=== PATIENT | male | born 1985 | race Caucasian/White ===

== ENCOUNTER 2017-03-22 18:34 | Emergency (ER) | payer SELFPAY ==
--- NOTE | 2017-03-22 18:50 | PDOC ---
History of Present Illness - History of Present Illness Initial Comments: 03/22/17 19:26 Patient is a 31 year old male with no significant medical hx who is presenting to the ED with multiple bee stings that occurred twenty minutes ago. 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 He reports 10-12 bee stings localized to his head, ears, and right foot. The patient also complains of itchy rash all over his body. Denies throat swelling, dyspnea, wheezing, nausea, vomiting, or cough. <Tamia Concepcion - Last Filed: 03/22/17 19:23> <López Mendiola - Last Filed: 03/22/17 22:50> - General Chief Complaint: Bite Stated Complaint: BEE ATTACK, ALLERGIC REACTION Time Seen by Provider: 03/22/17 18:49 Past History <Tamia Concepcion - Last Filed: 03/22/17 19:23> - Past Medical History Other medical history: NONE - Psycho/Social/Smoking Cessation Hx Anxiety: No Suicidal Ideation: No Smoking History: Never smoked Hx Alcohol Use: No Drug/Substance Use Hx: No Substance Use Type: None <López Mendiola - Last Filed: 03/22/17 22:50> - Past Medical History Allergies/Adverse Reactions: Allergies Allergy/AdvReac Type Severity Reaction Status Date / Time No Known Allergies Allergy Verified 03/22/17 18:39 Home Medications: Ambulatory Orders Diphenhydramine [Benadryl Capsule -] 50 mg PO QID #20 capsule 03/22/17 Epinephrine [Epipen 2-Mark] 0.3 mg IJ ASDIR #1 kit 03/22/17 Famotidine [Pepcid] 20 mg PO BID #20 tablet 03/22/17 Prednisone [Deltasone -] 60 mg PO DAILY #15 tablet 03/22/17 Review of Systems - Review of Systems Comments:: 03/22/17 19:27 CONSTITUTIONAL: No fever, no chills, no fatigue EYES: No visual changes ENT: No ear pain, no sore throat CARDIOVASCULAR: No chest pain, no palpitations RESPIRATORY: No cough, no SOB GI: No abdominal pain, no nausea, no vomiting, no constipation, no diarrhea GENITOURINARY: No dysuria, no frequency, no hematuria MUSKULOSKELETAL: No backpain, no joint pain, no myalgias SKIN: Bee stings, itchy rash NEURO: No headache <Tamia Concepcion - Last Filed: 03/22/17 19:23> *Physical Exam - Vital Signs Last Vital Signs Temp Pulse Resp BP Pulse Ox 98.0 F 146 H 22 164/90 97 03/22/17 18:37 03/22/17 18:37 03/22/17 18:37 03/22/17 18:37 03/22/17 18:37 - Physical Exam Comments: 03/22/17 19:28 CONSTITUTIONAL: Well-appearing; well-nourished; moderate distress HEAD: Normocephalic; atraumatic EYES: PERRL; EOM intact ENMT: External appears normal; normal oropharynx; uvula midline and non- edematous; no angioedema NECK: Supple; non-tender; no cervical lymphadenopathy CARD: Tachycardic; normal S1, S2; no murmurs, rubs, or gallops RESP: Normal chest excursion with respiration; breath sounds clear and equal bilaterally; no wheezes, rhonchi, or rales ABD: Soft, non-distended; non-tender; no palpable organomegaly, no palpable hernias EXT: Normal ROM in all four extremities; non-tender to palpation; distal pulses intact SKIN: Warm, dry; diffuse urticarial rash to face, arms, and truck NEURO: No focal neurological deficiencies <Tamia Concepcion - Last Filed: 03/22/17 19:23> - Vital Signs Last Vital Signs Temp Pulse Resp BP Pulse Ox 98.0 F 146 H 22 164/90 97 03/22/17 18:37 03/22/17 18:37 03/22/17 18:37 03/22/17 18:37 03/22/17 18:37 <López Mendiola - Last Filed: 03/22/17 22:50> Medical Decision Making - Medical Decision Making 03/22/17 21:42 Patient is a 31-year-old male who presents to the ER with diffuse urticarial rash and pruritus after sustaining multiple bee stings. On initial evaluation, no airway issues are present. Uvula is midline and is not edematous. There is no facial or oropharyngeal AG edema. There is no stridor, and lungs are clear. Patient has received Solu-Medrol, Pepcid and Benadryl. We'll continue to observe. Likely discharge. 03/22/17 22:44 Patient reassessed. Patient is resting comfortably and is currently symptom- free. Patient's rash is completely resolved. There are no oropharyngeal issues at this time. Lungs are clear. Will discharge. <López Mendiola - Last Filed: 03/22/17 22:50> *DC/Admit/Observation/Transfer - Attestations Scribe Attestion: 03/22/17 19:30 Documentation prepared by Tamia Concepcion, acting as medical leader for López Mendiola MD. <Tamia Concepcion - Last Filed: 03/22/17 19:23> <López Mendiola - Last Filed: 03/22/17 22:50> Diagnosis at time of Disposition: Allergic reaction to bee sting - Discharge Dispostion Disposition: HOME Condition at time of disposition: Stable - Referrals Referrals: [facility] [Provider Group] - Patient Instructions Printed Discharge Instructions: DI for General Allergic Reactions, DI for Insect Bites and Stings
[2017-03-22 18:51] VITALS: BMI 31.9
[2017-03-22] MEDS ORDERED: methylPREDNISolone NA SUCC 125 MG/2 ML VIAL ONE (18:52)
[2017-03-22] MEDS ORDERED: FAMOTIDINE 20 MG/50 ML IVPB 50 ML IVPB ONE ×2 (18:52→21:00)
[2017-03-22 20:35] VITALS: BP 126/95; PULSE 94; TEMP 98.6
[2017-03-22] MEDS ORDERED: methylPREDNISolone NA SUCC 125 MG/2 ML VIAL IVPB ONE (20:57)
== END 2017-03-22 23:08 | disposition home or self-care (01) ==
LOC: JER 18:34
PROC: 3E033GC Introduction of Other Therapeutic Substance into Peripheral Vein, Percutaneous Approach (ICD-10-PCS; principal; 2017-03-22)
PROC: 3E0333Z Introduction of Anti-inflammatory into Peripheral Vein, Percutaneous Approach (ICD-10-PCS; 2017-03-22)
PROC: 3E033GC Introduction of Other Therapeutic Substance into Peripheral Vein, Percutaneous Approach (ICD-10-PCS; 2017-03-22)
DX: T63.441A Toxic effect of venom of bees, accidental (unintentional), initial encounter (principal); L50.8 Other urticaria; Y92.096 Garden or yard of other non-institutional residence as the place of occurrence of the external cause; Y93.H2 Activity, gardening and landscaping; Y99.0 Civilian activity done for income or pay
CPT/HCPCS: 99281-25